=== PATIENT | female | born 2000 | race American Indian/Alaskan Native ===

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

== ENCOUNTER 2021-01-15 07:56 | Day surgery (SDC) | payer MEDICAID ==
--- NOTE | 2021-01-15 07:11 | History and Physical Report ---
History of Present Illness Date of examination: 01/14/21 History of present illness: Patient has been reassessed/reevaluated. H&P has been reviewed. No interval changes. This is a 20 years old female who presents missed Patient's work up has included serial transvaginal ultrasounds and Bhcg which revealed missed . Medical and surgical treatment options discussed Discussed risks and benefits of expectant management, treatments with medications and dilatation and curretage. Patient desires D&C Vital Signs: Patient Profile: 20 Years Old Female LMP: 10/26/2020 Height: 61 inches Weight: 216 pounds BMI: 40.81 Temp: 97.5 degrees F BP sittin / 78 (left arm) Menstrual History: LMP (date): 10/26/2020 Past History : 3 Term Births: 2 Premature Births: 0 Living Children: 2 Para: 2 Mult. Births: 0 Prev : 1 Aborta: 0 Elect. Ab: 0 Spont. Ab: 0 Ectopics: 0 # 1 Delivery date: 2014 Weeks Gestation: 38 labor: no Delivery type: Hours of labor: 14 Anesthesia type: epidural Delivery location: [facility] Sex: Female weight: 5-4 # 2 Delivery date: 2017 Weeks Gestation: 38 labor: no Delivery type: Hours of labor: 18 Anesthesia type: spinal Delivery location: [facility] Sex: Female weight: 6-0 Comments: arrest of dilation [employer] History Uterine Surgery (not C/S): negative Operations: C-sectionX 2018 Anesthesia Complications: negative Abnormal PAP: negative Uterine Anomaly: negative EDYTA Exposure: negative Infertility: negative Infection History HIV Risk Eval: no Personal hx. of genital herpes: no Partner hx. of genital herpes: no Hx of STD: none Current Allergies (reviewed today): No known allergies Past Medical History: Negative Past Medical History Past Surgical History: C-sectionX 1 2018 Family History Summary: General Comments - FH: DM: Aunt and Uncle HTN: Aunt and Uncle Stroke: Uncle Risk Factors: Smoked Tobacco Use: Never smoker Smokeless Tobacco Use: Never Passive smoke exposure: no Drug use: no HIV high-risk behavior: no Caffeine use: 0 drinks per day Alcohol use: no Exercise: yes Times per week: 2 Seatbelt use: 100 % Review of Systems General Denies fever, chills, sweats, anorexia, fatigue, weakness, malaise, weight loss and sleep disorder. Complains of abnormal vaginal bleeding. Denies vaginal discharge, incontinence, dysuria, hematuria, urinary frequency, amenorrhea, menorrhagia, pelvic pain, genital sores, decreased libido, painful periods, painful sex, urinary urgency, hot flashes, vaginal dryness, vaginal itching and vaginal odor. CV Denies chest pains, palpitations, syncope, dyspnea on exertion, orthopnea, PND and peripheral edema. Resp Denies cough, dyspnea at rest, excessive sputum, hemoptysis, wheezing and pleurisy. GI Denies nausea, vomiting, diarrhea, constipation, change in bowel habits, abdominal pain, melena, hematochezia, jaundice, gas/bloating, indigestion/heartburn, dysphagia and odynophagia. Breast Denies left breast lump, right breast lump, nipple discharge, bloody discharge from nipple, breast pain, abnormal mammogram and breast enlargement. Past History Past Medical History: other (SEE HPI FOR DETAILS) Past Surgical History: Other (SEE HPI FOR DETAILS) Social history: other (SEE HPI FOR DETAILS) Family history: other (SEE HPI FOR DETAILS) Medications and Allergies Allergies Allergy/AdvReac Type Severity Reaction Status Date / Time No Known Drug Allergies Allergy Unknown Verified 01/15/21 09:03 turkey Allergy Hives Verified 01/15/21 09:03 Home Medications Medication Instructions Recorded Confirmed Last Taken Type No Known Home Medications [No 01/15/21 01/15/21 Unknown History Reported Home Medications] Review of Systems Constitutional: other (SEE HPI FOR DETAILS) Exam - Physical Exam Narrative exam: HEENT: normocephalic, no lesions or deformities Skin no significant abnormal lesions or rashes Chest: respiratory effort normal, clear to auscultation CV: regular, normal S1-S2, no murmur, no rub, no gallop Abdomen: normal bowel sounds, soft, nontender, no HSM Neuro: no gross anomalities Extremities: no clubbing, cyanosis, or edema [employer] Exams Vulva/Vagina: No lesions, normal BUS, normal rugae Cervix: No lesions; no cervical motion tenderness Uterus: normal size and position, midline, mobile Adnexae: no masses or tenderness Rectovaginal: exam defered Results - Labs CBC & Chem 7: 01/15/21 07:25 Assessment and Plan - Patient Problems (1) Missed Current Visit: No Status: Acute Plan to address problem: Diagnosis explained to patient . Questions answered. Medical and surgical treatment options discussed Patient desires D&C. Discussed risk of surgery including infection, bleeding and risk of perforating her uterus. Questions answered. Patient understands and desires to proceed
[2021-01-15] MEDS ORDERED: LACTATED RINGERS 1,000 ML IV SCH (08:30)
[2021-01-15 08:34] LABS: Hematocrit 35.8 % (30.3-42.9); Hemoglobin 12.1 gm/dl (10.1-14.3)
[2021-01-15] MEDS ORDERED: HYDROmorphone 1 MG/1 ML INJ ONE (08:54)
[2021-01-15] MEDS ORDERED: propofoL 200 MG/20 ML VIAL IV ONE (08:55)
--- NOTE | 2021-01-15 09:12 | Anesthesia Consultation ---
Anesthesia Consult and Med Hx Date of service: 01/15/21 - Airway Anesthetic Teeth Evaluation: Good ROM Head & Neck: Adequate Mental/Hyoid Distance: Adequate - Pre-Operative Health Status ASA Pre-Surgery Classification: ASA3 Proposed Anesthetic Plan: General - Pulmonary Hx Asthma: No COPD: No Hx Pneumonia: No - Cardiovascular System Hx Hypertension: No Hx Coronary Artery Disease: No Hx Heart Attack/AMI: No Hx Angina: No - Central Nervous System Hx Neuromuscular Disorder: No Hx Seizures: No CVA: No Hx Psychiatric Problems: No - Endocrine Hx Renal Disease: No Hx End Stage Renal Disease: No Hx Cirrhosis: No Hx Liver Disease: No Hx Hypothyroidism: No Hx Hyperthyroidism: No - Hematic Hx Anemia: Yes Hx Sickle Cell Disease: No - Other Systems Hx Alcohol Use: No Hx Obesity: Yes (Morbid obesity BMI 44.4)
--- NOTE | 2021-01-15 09:12 | Anesthesia Day of Surgery ---
Anesthesia Day of Surgery - Day of Surgery Patient Examined: Yes Patient H&P Reviewed: Yes Patient is NPO: Yes
[2021-01-15] MEDS ORDERED: MIDAZOLAM 2 MG/2 ML INJ IV NR (10:00)
[2021-01-15] MEDS ORDERED: FAMOTIDINE 20 MG/2 ML INJ IV NR (10:00)
[2021-01-15] MEDS ORDERED: LIDOCAINE MPF (2%) 20 MG/1 ML VIAL 5 ML ONE (10:04)
[2021-01-15] MEDS ORDERED: dexAMETHasone 20 MG/5 ML VIAL ONE (10:04)
[2021-01-15] MEDS ORDERED: ONDANSETRON 4 MG/2 ML INJ ONE (10:04)
[2021-01-15] MEDS ORDERED: KETOROLAC 30 MG/1 ML INJ ONE (10:05)
[2021-01-15] MEDS ORDERED: METHYLERGONOVINE MALEATE 0.2 MG/ML VIAL IM ONE ×2 (10:06→10:33)
[2021-01-15] MEDS ORDERED: SODIUM CHLORIDE 0.9% IRR 1,500 ML BOTTLE IR ONE (10:33)
--- NOTE | 2021-01-15 10:40 | Operative Report ---
Operative Report Operative Report: Date of procedure: January 15, 2021 Pre-operative diagnosis: Missed Post-operative diagnosis: Same Procedure name(s): Suction dilatation and curettage Surgeon: Rigoberto Falcon MD [employer] Forming Machine Tender: [] Anesthesia: General EBL: 50 mL Complications: None Findings: A moderate amount of tissue consistent with products of conception Specimen(s): Uterine contents Procedure: The patient was brought operating room where general anesthesia was induced without difficulty. Patient was placed in dorsal lithotomy position prepped and draped in the usual sterile manner. Rubber catheter was used to empty her bladder. Speculum placed in the vagina. Tenaculum was placed at 12:00. The cervix was dilated progressively with Hegar dilators. A 10 mm suction catheter was placed through the cervical os. Several passes of the suction catheter removed the uterine contents. General curettage was done with a banjo curettte. On until a gritty sensation was felt throughout the uterine cavity. Further suction with the suction curettage revealed no further products. All instruments were removed patient was hemostatic. She was awakened in the operating room and accompanied to recovery room in good condition.
--- NOTE | 2021-01-15 10:42 | Short Stay Summary ---
Short Stay Documentation Date of service: 01/15/21 - History Past Medical History: other (SEE HPI FOR DETAILS) Past Surgical History: Other (SEE HPI FOR DETAILS) Social history: other (SEE HPI FOR DETAILS) - Allergies and Medications Current Medications: Allergies No Known Drug Allergies Allergy (Verified 01/15/21 09:03) Unknown turkey Allergy (Verified 01/15/21 09:03) Hives Home Medications Medication Instructions Recorded Confirmed Last Taken Type RX: No Known Home Medications [No 01/15/21 01/15/21 Unknown History Reported Home Medications] Active Medications Famotidine (Famotidine 20 Mg/2 Ml Inj) 20 mg IV PREOP NR Stop: 01/15/21 21:00 Last Admin: 01/15/21 09:33 Dose: 20 mg Documented by: Lactated Ringer's (Lactated Ringers) 1,000 mls @ 125 mls/hr IV DIRECT CINTHIA Last Admin: 01/15/21 07:25 Dose: 125 mls/hr Documented by: Midazolam HCl (Midazolam 2 Mg/2 Ml Inj) 2 mg IV PREOP NR Stop: 01/15/21 23:59 Last Admin: 01/15/21 09:35 Dose: 2 mg Documented by: - Physical exam General appearance: no acute distress Integumentary: no rash HEENT: Atraumatic Lungs: Normal air movement Heart: Regular rate Gastrointestinal: normal Female Genitourinary: normal Rectal Exam: deferred Extremities: no ischemia, pulses intact, No edema - Brief post op/procedure progress note Date of procedure: 01/15/21 (See dictated operative note for details) - Hospital course Hospital course: Patient was admitted underwent the above him procedure without any complications. Patient will be discharged with follow-up in office in 1-2 weeks for postop check. - Disposition Condition at discharge: Good Disposition: DC-01 TO HOME OR SELFCARE - Discharge Diagnoses (1) Missed Status: Acute Short Stay Discharge Plan Activity: no restrictions Diet: regular Additional Instructions: Patient to call office for fever chills nausea, vomiting.heavy vaginal bleeding or pain uncontrolled by pain medication Follow up with: CANDACE MCKENNA [Other] - 7 Days Forms: Outpatient Surgery DC Inst.
[2021-01-15] MEDS ORDERED: HYDROcodone/ACETAMINOPHEN 5-325 MG TAB PO PRN (11:00)
[2021-01-15 11:30] VITALS: BP 120/58
--- NOTE | 2021-01-15 11:56 | Post Anesthesia Evaluation ---
- Post Anesthesia Evaluation Patient Participated: Yes Airway Patent: Yes Stable Respiratory Function: Yes Nausea/Vomiting: No Temp > 96.8F: Yes Pain Manageable: Yes Adequeate Hydration: Yes Anesthesia Complications: No Block Receding Appropriately: Not Applicable Patient on Ventilator: No
== END 2021-01-15 11:40 | disposition home or self-care (01) ==
LOC: OR 07:56
PROVIDERS: ATTEND Obstetrics & Gynecology
DX: O02.1 Missed abortion (principal); E66.9 Obesity, unspecified; Z87.42 Personal history of other diseases of the female genital tract; Z79.899 Other long term (current) drug therapy; Z98.890 Other specified postprocedural states
CPT/HCPCS: 36415; 59820; 85014; 85018; 88305; J1100; J1170; J1885; J2210; J2250; J2405; J2704; J7120

== ENCOUNTER 2021-04-21 13:02 | Emergency (ER) | payer MEDICAID ==
[2021-04-21 14:08] VITALS: BP 138/75
[2021-04-21 16:07] LABS: Mean Corpuscular HGB Conc 33 % (30-34); Mean Corpuscular Volume 83 fl (79-97); Platelet Count 266 K/mm3 (140-440); Red Blood Count 4.34 M/mm3 (3.65-5.03); Red Cell Distribution Width 14.4 % (13.2-15.2)
[2021-04-21 16:11] LABS: Bilirubin,Urine NEG (Negative); Blood,Urine NEG (Negative); Color,Urine Yellow (Yellow); Mucus,Urine 2+ /HPF
[2021-04-21 16:15] LABS: Alanine Aminotransferase 33 units/L (7-56); Albumin 4.4 g/dL (3.9-5); Blood Urea Nitrogen 8 mg/dL (7-17); Calcium 9.6 mg/dL (8.4-10.2); Hemolysis Index 21
[2021-04-21 16:16] LABS: BUN/Creatinine Ratio 20
[2021-04-21] MEDS ORDERED: ONDANSETRON 4 MG ODT TAB PO ONE (16:54)
--- NOTE | 2021-04-21 16:59 | Emergency Department Report ---
<JETT JOHNSON - Last Filed: 04/21/21 16:55> ED N/V/D HPI - General Chief complaint: Nausea/Vomiting/Diarrhea Stated complaint: VOMITING Time Seen by Provider: 04/21/21 14:51 Source: patient Mode of arrival: Ambulatory Limitations: No Limitations - History of Present Illness Initial comments: 20-year-old -[place] female who is 5 para to 3 with 1 miscarriage presents to the emergency room complaining of vomiting and nausea for few weeks. Patient states that she took a home test and it was positive. Patient reports her last menstrual period was 01/15/2021. Patient reports she is not able to hold down any foods or fluids. Patient reports that she has an appointment with her AUTOMOBILE ACCESSORIES INSTALLER for the first time on May 01, 2021 at [facility] in [place]. Patient reports that she was having lower abdominal pain. Denies any discharge or bleeding. MD complaint: nausea, vomiting, abdominal pain Onset/Timin -: week(s) Description of Vomiting: food contents Associated Abdominal Pain: Yes Severity: mild Quality: cramping Consistency: intermittent Improves with: none Worsens with: none Associated Symptoms: nausea/vomiting. denies: chest pain, diaphoresis, fever/chills, headaches - Related Data Previous Rx's Medication Instructions Recorded Last Taken Type Ondansetron [Zofran Odt] 4 mg PO Q8HR #12 tab.rapdis 04/21/21 Unknown Rx Vit-Fe Fumar-FA [ 1 tab PO QDAY #90 tablet 04/21/21 Unknown Rx Vitamin] Allergies Allergy/AdvReac Type Severity Reaction Status Date / Time No Known Drug Allergies Allergy Unknown Verified 01/15/21 09:03 turkey Allergy Hives Verified 01/15/21 09:03 ED Review of Systems Comment: All other systems reviewed and negative ED Past Medical Hx - Past Medical History Previous Medical History?: No Hx Hypertension: No Hx Heart Attack/AMI: No Hx Congestive Heart Failure: No Hx Diabetes: No Hx Deep Vein Thrombosis: No Hx Liver Disease: No Hx Renal Disease: No Hx Sickle Cell Disease: No Hx Seizures: No Hx Asthma: No Hx COPD: No Hx HIV: No - Surgical History Past Surgical History?: Yes Additional Surgical History: - Social History Smoking Status: Never Smoker - Medications Home Medications: Home Medications Medication Instructions Recorded Confirmed Last Taken Type Ondansetron [Zofran Odt] 4 mg PO Q8HR #12 tab.rapdis 04/21/21 Unknown Rx Vit-Fe Fumar-FA [ 1 tab PO QDAY #90 tablet 04/21/21 Unknown Rx Vitamin] ED Physical Exam - General Limitations: No Limitations ED Medical Decision Making - Lab Data Result diagrams: 04/21/21 15:22 04/21/21 15:22 - Medical Decision Making 20-year-old -[place] female who is 5 para to 3 with 1 miscarriage presents to the emergency room complaining of vomiting and nausea for few weeks. Patient states that she took a home test and it was positive. Patient reports her last menstrual period was 01/15/2021. Patient reports she is not able to hold down any foods or fluids. Patient reports that she has an appointment with her AUTOMOBILE ACCESS[employer]IES INSTALLER for the first time on May 01, 2021 at [facility] in [place]. Patient reports that she was having lower abdominal pain. Denies any discharge or bleeding. ED Disposition Clinical Impression: Nausea/vomiting in , First trimester Disposition: DC-01 TO HOME OR SELFCARE Is pt being admited?: No Does the pt Need Aspirin: No Condition: Stable Instructions: Morning Sickness, [id number] Additional Instructions: Urinalysis is negative for any concerns for infection. Blood work looks good no signs of anemia. Your hCG quant level was 5. Your ultrasound corresponds to gestational age of 5 weeks, 2 days. Take vitamins as directed. Please avoid smoking, drugs, caffeine, and alcohol. Eat a well-balanced diet. Do not eat shellfish. Drink plenty of fluids. Follow up with RAILWAY TRACK WORKER next week as scheduled. Do not take anything except Tylenol for pain without consulting your RAILWAY TRACK WORKER. Return to the Emergency Department for severe abdominal pain, loss of fluid, vaginal bleeding or any other concerns. Prescriptions: Vit-Fe Fumar-FA [ Vitamin] 1 tab PO QDAY #90 tablet Ondansetron [Zofran Odt] 4 mg PO Q8HR #12 tab.rapdis Referrals: [facility] [Provider Group] - 3-5 Days <FESTUS GRIGSBY - Last Filed: 04/21/21 19:07> ED Review of Systems ROS: Stated complaint: VOMITING Other details as noted in HPI ED Course Vital Signs 04/21/21 14:08 Temperature 98.9 F Pulse Rate 86 Respiratory 18 Rate Blood Pressure 138/75 [Right] O2 Sat by Pulse 97 Oximetry ED Medical Decision Making - Lab Data Result diagrams: 04/21/21 15:22 04/21/21 15:22 - Medical Decision Making Care of patient transferred by Magy Johnson PA-C at shift change pending ultrasound results. On reevaluation, patient remains stable. No vomiting in the emergency department. Ultrasound shows intrauterine gestational sac corresponding to 5 weeks, 2 days gestational age. No clinical indication for further diagnostic work-up on an emergent basis at this time. Patient will be discharged home with prescriptions as previously arranged by initial ED provider and instructed to follow-up with her reconnaissance man as scheduled next week. Patient expressed understanding and is agreeable to plan of care. Lifestyle modifications discussed. Strict return precautions provided. ULTRASOUND OBSTETRIC INDICATION / CLINICAL INFORMATION: abd pain. Hyperemesis. Early . Clinical Gestational Age (GA) in weeks, days: 5, 0 TECHNIQUE: Transabdominal and Transvaginal. COMPARISON: None available. FINDINGS: GESTATIONAL SAC: Well-defined oval shape and intrauterine in location. Mean gestational sac diameter is 0.53 cm corresponding to 5, 2 weeks, days. YOLK SAC: Not visualized. EMBRYO/FETUS: Not visualized. ADNEXA: Physiologic right ovarian cyst. Left ovary appears normal. No adnexal mass. FREE FLUID: None. ADDITIONAL FINDINGS: None. IMPRESSION: 1. Intrauterine gestational sac corresponding to 5 weeks, 2 days gestational age. No definite yolk sac or embryonic pole. Clinical and sonographic follow-up is recommended. Signer Name: Sally Floyd MD Signed: 04/21/2021 5:39 PM Workstation Name: [id number] Transcribed By: DT Dictated By: Clem Floyd MD Electronically Authenticated By: Clem Floyd MD Signed Date/Time: 04/21/211738 DD/ 35 TD/TT: Critical care attestation.: If time is entered above; I have spent that time in minutes in the direct care of this critically ill patient, excluding procedure time. ED Disposition Is pt being admited?: No Does the pt Need Aspirin: No Time of Disposition: 18:18
--- NOTE | 2021-04-21 17:43 | Ultrasound Report ---
ULTRASOUND OBSTETRIC INDICATION / CLINICAL INFORMATION: abd pain. Hyperemesis. Early . Clinical Gestational Age (GA) in weeks, days: 5, 0 TECHNIQUE: Transabdominal and Transvaginal. COMPARISON: None available. FINDINGS: GESTATIONAL SAC: Well-defined oval shape and intrauterine in location. Mean gestational sac diameter is 0.53 cm corresponding to 5, 2 weeks, days. YOLK SAC: Not visualized. EMBRYO/FETUS: Not visualized. ADNEXA: Physiologic right ovarian cyst. Left ovary appears normal. No adnexal mass. FREE FLUID: None. ADDITIONAL FINDINGS: None. IMPRESSION: 1. Intrauterine gestational sac corresponding to 5 weeks, 2 days gestational age. No definite yolk sa c or embryonic pole. Clinical and sonographic follow-up is recommended. Signer Name: Sally Floyd MD Signed: 04/21/2021 5:39 PM Workstation Name: [id number]
== END 2021-04-21 18:43 | disposition home or self-care (01) ==
LOC: ED 13:02
DX: O21.8 Other vomiting complicating pregnancy (principal); Z3A.01 Less than 8 weeks gestation of pregnancy; Z88.8 Allergy status to other drugs, medicaments and biological substances; Z98.890 Other specified postprocedural states; Z79.899 Other long term (current) drug therapy
CPT/HCPCS: 36415; 76801; 76805; 76817; 80053; 81001; 84702; 85027; Q0162

== ENCOUNTER 2021-09-15 16:46 | Outpatient (CLI) | payer MEDICAID ==
--- NOTE | 2021-09-15 18:27 | Emergency Department Report ---
<FRANCK KATHLEEN S - Last Filed: 09/16/21 09:13> ED Shortness of Breath HPI - General Chief Complaint: OB/Uterine Contractions Time Seen by Provider: 09/15/21 18:21 - Related Data Previous Rx's Medication Instructions Recorded Last Taken Type Ondansetron [Zofran Odt] 4 mg PO Q8HR #12 tab.rapdis 04/21/21 Unknown Rx Vit-Fe Fumar-FA [ 1 tab PO QDAY #90 tablet 04/21/21 Unknown Rx Vitamin] Allergies Allergy/AdvReac Type Severity Reaction Status Date / Time No Known Drug Allergies Allergy Unknown Verified 01/15/21 09:03 turkey Allergy Hives Verified 01/15/21 09:03 ED Past Medical Hx - Medications Home Medications: Home Medications Medication Instructions Recorded Confirmed Last Taken Type Ondansetron [Zofran Odt] 4 mg PO Q8HR #12 tab.rapdis 04/21/21 Unknown Rx Vit-Fe Fumar-FA [ 1 tab PO QDAY #90 tablet 04/21/21 Unknown Rx Vitamin] ED Medical Decision Making - Lab Data Result diagrams: 09/15/21 21:43 09/15/21 21:43 Lab Results 09/15/21 09/15/21 Range/Units 21:43 21:43 WBC 12.9 H (4.5-11.0) K/mm3 RBC 4.02 (3.65-5.03) M/mm3 Hgb 10.8 (10.1-14.3) gm/dl Hct 34.1 (30.3-42.9) % MCV 85 (79-97) fl MCH 27 L (28-32) pg MCHC 32 (30-34) % RDW 14.5 (13.2-15.2) % Plt Count 241 (140-440) K/mm3 Lymph % (Auto) 20.4 (13.4-35.0) % [place] % (Auto) 5.1 (0.0-7.3) % Eos % (Auto) 0.5 (0.0-4.3) % Baso % (Auto) 0.2 (0.0-1.8) % Lymph # (Auto) 2.6 (1.2-5.4) K/mm3 [place] # (Auto) 0.7 (0.0-0.8) K/mm3 Eos # (Auto) 0.1 (0.0-0.4) K/mm3 Baso # (Auto) 0.0 (0.0-0.1) K/mm3 Seg Neutrophils % 73.8 H (40.0-70.0) % Seg Neutrophils # 9.6 H (1.8-7.7) K/mm3 Sodium 138 (137-145) mmol/L Potassium 3.5 L (3.6-5.0) mmol/L Chloride 105.0 (98-107) mmol/L Carbon Dioxide 18 L (22-30) mmol/L Anion Gap 19 mmol/L BUN 7 (7-17) mg/dL Creatinine 0.3 L (0.6-1.2) mg/dL Estimated GFR > 60 ml/min BUN/Creatinine Ratio 23 % Glucose 72 (65-100) mg/dL Calcium 9.0 (8.4-10.2) mg/dL Troponin T < 0.010 (0.00-0.029) ng/mL NT-Pro-B Natriuret Pep 8.11 (0-450) pg/mL - Radiology Data NUCLEAR MEDICINE PERFUSION LUNG SCAN INDICATION / CLINICAL INFORMATION: SOB. TECHNIQUE: 2.8 mCi of Tc-99m MAA were given by IV. COMPARISON: Chest radiograph dated yesterday 09/15/2021. FINDINGS: PERFUSION: No segmental perfusion defects. ADDITIONAL FINDINGS: None. IMPRESSION: 1. Low probability for pulmonary embolism. ED Disposition Clinical Impression: Shortness of breath, Second trimester Disposition: 01 HOME / SELF CARE / HOMELESS Is pt being admited?: No Condition: Stable <ANAI SALAZAR - Last Filed: 09/21/21 21:20> ED Shortness of Breath HPI - General Source: patient Mode of arrival: Ambulatory Limitations: No Limitations - History of Present Illness Initial Comments: Chief complaint shortness of breath HPI: This is a 21-year-old female who is currently 26 weeks 1 day estimated due date December 21, 2021 who presents with shortness of breath. Patient's had shortness of breath for 1 month. She was sent by her trench pipe layer helper at my [employer] for evaluation. She denies fever, cough, body aches. She denies loss of taste smell. She did not receive COVID-19 vaccine. This is her fifth . She has had 1 miscarriage, 3 vaginal deliveries. -0-1-3 Patient also has had decreased movement and pelvic pain. She was evaluate d at labor and delivery prior to coming to the emergency department. MD Complaint: shortness of breath -: Gradual, month(s) (1 month) Severity: moderate Consistency: constant Improves With: nothing Worsens With: nothing Associated Symptoms: denies other symptoms ED Review of Systems ROS: Stated complaint: Other details as noted in HPI Comment: All other systems reviewed and negative Constitutional: denies: chills, fever, malaise Respiratory: shortness of breath. denies: cough, wheezing Cardiovascular: denies: chest pain Gastrointestinal: denies: abdominal pain, nausea, vomiting Skin: denies: rash, lesions Neurological: denies: headache, weakness ED Past Medical Hx - Past Medical History Previous Medical History?: No Hx Hypertension: No Hx Heart Attack/AMI: No Hx Congestive Heart Failure: No Hx Diabetes: No Hx Deep Vein Thrombosis: No Hx Liver Disease: No Hx Renal Disease: No Hx Sickle Cell Disease: No Hx Seizures: No Hx Asthma: No Hx COPD: No Hx HIV: No - Surgical History Past Surgical History?: Yes Additional Surgical History: - Social History Smoking Status: Never Smoker Substance Use Type: None ED Physical Exam - General Limitations: No Limitations General appearance: alert, in no apparent distress - Head Head exam: Present: atraumatic, normocephalic - Eye Eye exam: Present: normal appearance - ENT ENT exam: Present: mucous membranes moist - Neck Neck exam: Present: normal inspection, full ROM - Respiratory Respiratory exam: Present: normal lung sounds bilaterally. Absent: respiratory distress, wheezes, rales, rhonchi - Cardiovascular Cardiovascular Exam: Present: regular rate, normal rhythm, normal heart sounds. Absent: systolic murmur, diastolic murmur, rubs, gallop - GI/Abdominal GI/Abdominal exam: Present: soft, normal bowel sounds. Absent: distended, tenderness, guarding, rebound - Extremities Exam Extremities exam: Present: normal inspection - Neurological Exam Neurological exam: Present: alert, oriented X3 - Psychiatric Psychiatric exam: Present: normal affect, normal mood - Skin Skin exam: Present: warm, dry, intact, normal color. Absent: rash ED Course Vital Signs 09/15/21 17:55 Temperature 98.4 F Pulse Rate 87 Respiratory 20 Rate Blood Pressure 109/70 [Left] O2 Sat by Pulse 100 Oximetry - Reevaluation(s) Reevaluation #1: 09/15/21 18:52 [employer] call nuclear medicine pet ct technologist. Perfusion scan will be performed at 6 AM. The scan is delayed due to medication shortage. Patient is aware. ED Medical Decision Making - Lab Data Result diagrams: 09/15/21 21:43 09/15/21 21:43 - Radiology Data Radiology results: report reviewed Patient Name: DANNA RIVAS Gender: Female Date of : 2000 Referring Provider: ANAI SALAZAR Organization: [facility] Accession Number: [id number] Requested Date: September 15, 2021 18:52 Report Status: Final Requested Procedure: 1 Procedure Description: US OB follow up Modality: US Findings Reporting MD: Charles Mendez Dictation Time: September 15, 2021 19:42 Assistant Service Manager: Not available Dye Weigher Date: Limited OB Ultrasound HISTORY: decreased movement. TECHNIQUE: Grayscale and color imaging performed. COMPARISON: 04/21/2021 FINDINGS: Single viable intrauterine gestation with cephalic presentation. Anterior placenta. GIANA is 13 cm. Heart rate is 143 bpm. Cervical length is 5 cm. Overall EGA by ultrasound is 26 weeks and 4 days with estimated delivery date of 12/18/2021. These findings are compared to a clinical gestational age of 26 weeks and 1 day. Estimated weight is 891 g. movement was observed by the c d area supervisor during the exam. IMPRESSION: Single viable intrauterine gestation as above. Signer Name: Charles Mendez MD Signed: 09/15/2021 7:42 PM Workstation Name: [id number] Patient Name: DANNA RIVAS Gender: Female Date of : 2000 Referring Provider: ANAI SALAZAR Organization: [facility] Accession Number: [id number] Requested Date: September 15, 2021 18:21 Report Status: Final Requested Procedure: 1 Procedure Description: XR chest 1V ap Modality: XR Findings Reporting MD: Charles Mendez Dictation Time: September 15, 2021 18:22 Assistant Service Manager: Not available Dye Weigher Date: CHEST 1 VIEW INDICATION: Second trimester shortness of breath. COMPARISON: None FINDINGS: SUPPORT DEVICES: None. HEART: Within normal limits. LUNGS/PLEURA: Minimal interstitial edema with no consolidation or effusion. ADDITIONAL FINDINGS: None. IMPRESSION: 1. Lung findings as above. Signer Name: Charles Mendez MD Signed: 09/15/2021 6:22 PM Workstation Name: [id number] - Medical Decision Making . Shortness of breath: Must rule out pulmonary embolism. Awaiting perfusion scan which will be performed approximately 6 AM. Delay due to medication shortage. Chemistry within normal limits, BMP within normal and her troponin within normal limits. Nonspecific leukocytosis. No evidence of infection. 2. Decreased movement pelvic pain: I discussed case with Dr. Falcon. Patient is appropriate for discharge once dyspnea work-up is complete. Ultrasound obtained revealed movement viable IUP with cardiac activity I have reviewed perfusion scan read. Patient had appropriate disposition by my colleague. Critical care attestation.: If time is entered above; I have spent that time in minutes in the direct care of this critically ill patient, excluding procedure time. ED Disposition Is pt being admited?: No Does the pt Need Aspirin: No
--- NOTE | 2021-09-15 19:26 | XRay Report ---
CHEST 1 VIEW INDICATION: Second trimester shortness of breath. COMPARISON: None FINDINGS: SUPPORT DEVICES: None. HEART: Within normal limits. LUNGS/PLEURA: Minimal interstitial edema with no consolidation or effusion. ADDITIONAL FINDINGS: None. IMPRESSION: 1. Lung findings as above. Signer Name: Charles Mendez MD Signed: 09/15/2021 7:22 PM Workstation Name: [id number]
--- NOTE | 2021-09-15 20:46 | Ultrasound Report ---
Limited OB Ultrasound HISTORY: decreased movement. TECHNIQUE: Grayscale and color imaging performed. COMPARISON: 04/21/2021 FINDINGS: Single viable intrauterine gestation with cephalic presentation. Anterior placenta. GIANA is 13 cm. Heart rate is 143 bpm. Cervical length is 5 cm. Overall EGA by ultrasound is 26 weeks and 4 da ys with estimated delivery date of 12/18/2021. These findings are compared to a clinical gestational ag e of 26 weeks and 1 day. Estimated weight is 891 g. movement was observed by the sonograp her during the exam. IMPRESSION: Single viable intrauterine gestation as above. Signer Name: Charles Mendez MD Signed: 09/15/2021 8:42 PM Workstation Name: [id number]
[2021-09-15 21:57] LABS: Basophils % (Auto) 0.2 % (0.0-1.8); Eosinophils # (Auto) 0.1 K/mm3 (0.0-0.4); Eosinophils % (Auto) 0.5 % (0.0-4.3); Hematocrit 34.1 % (30.3-42.9); Hemoglobin 10.8 gm/dl (10.1-14.3); Lymphocytes # (Auto) 2.6 K/mm3 (1.2-5.4); Lymphocytes % (Auto) 20.4 % (13.4-35.0); Mean Corpuscular HGB Conc 32 % (30-34); Mean Corpuscular Volume 85 fl (79-97); Monocytes # (Auto) 0.7 K/mm3 (0.0-0.8); Monocytes % (Auto) 5.1 % (0.0-7.3); Platelet Count 241 K/mm3 (140-440); Red Blood Count 4.02 M/mm3 (3.65-5.03); Red Cell Distribution Width 14.5 % (13.2-15.2)
[2021-09-15 22:16] LABS: Blood Urea Nitrogen 7 mg/dL (7-17); Hemolysis Index 6
[2021-09-15 22:17] LABS: BUN/Creatinine Ratio 23
--- NOTE | 2021-09-16 08:44 | Nuclear Medicine Report ---
NUCLEAR MEDICINE PERFUSION LUNG SCAN INDICATION / CLINICAL INFORMATION: SOB. TECHNIQUE: 2.8 mCi of Tc-99m MAA were given by IV. COMPARISON: Chest radiograph dated yesterday 09/15/2021. FINDINGS: PERFUSION: No segmental perfusion defects. ADDITIONAL FINDINGS: None. IMPRESSION: 1. Low probability for pulmonary embolism. Signer Name: Parker Donis MD Signed: 09/16/2021 8:40 AM Workstation Name: [id number]
[2021-09-16 10:25] VITALS: BP 129/86
[2021-09-16] MEDS ORDERED: LACTATED RINGERS 500 ML IV ONE (11:33)
[2021-09-21] MEDS ORDERED: OXYTOCIN DRIP 30,000 MILLIUNITS/500 ML BAG IV ONE (09:49)
== END 2021-09-16 23:59 | disposition home or self-care (01) ==
LOC: LDOR 16:46 → APU 16:46 → ED 16:46 → TRG 16:46 → LDOR 16:58 → APU 16:58 → ED 16:58 → TRG 16:58 → APU 16:58 → EDSTATUS 17:32 → ED 09-16 10:23 → APU 09-16 10:23 → EDCLIBED 09-16 10:56 → UNDOFXERSVC 09-16 10:56 → UNDOFXCLIACCOM 09-16 10:56 → UNDOFXCLISVC 09-16 10:56 → TRG 09-16 23:59
PROVIDERS: ATTEND Obstetrics & Gynecology
DX: Z34.92 Encounter for supervision of normal pregnancy, unspecified, second trimester (principal); R06.02 Shortness of breath; Z3A.17 17 weeks gestation of pregnancy
CPT/HCPCS: 36415; 71045; 76816; 78580; 80048; 83880; 84484; 85025; A9540

== ENCOUNTER 2021-09-16 14:11 | Outpatient (CLI) | payer MEDICAID ==
[2021-09-16] MEDS ORDERED: LACTATED RINGERS 500 ML IV ONE (14:45)
[2021-09-16 15:43] VITALS: BP 113/58
== END 2021-09-16 15:32 | disposition home or self-care (01) ==
LOC: TRG 14:11
PROVIDERS: ATTEND Obstetrics & Gynecology
DX: Z34.92 Encounter for supervision of normal pregnancy, unspecified, second trimester (principal); Z3A.26 26 weeks gestation of pregnancy
CPT/HCPCS: 59025; Q0177

== ENCOUNTER 2021-10-28 20:21 | Outpatient (CLI) | payer MEDICAID ==
[2021-10-28] MEDS ORDERED: LACTATED RINGERS 500 ML IV ONE (20:46)
[2021-10-28 20:57] VITALS: BP 110/59
[2021-10-28 21:18] LABS: Bilirubin,Urine NEG (Negative); Blood,Urine NEG (Negative); Color,Urine Amber (Yellow); Mucus,Urine 3+ /HPF
== END 2021-10-28 21:53 | disposition home or self-care (01) ==
LOC: TRG 20:21 → APU 20:22 → TRG 21:53
PROVIDERS: ATTEND Obstetrics & Gynecology
DX: O62.9 Abnormality of forces of labor, unspecified (principal); O36.8130 Decreased fetal movements, third trimester, not applicable or unspecified; Z3A.32 32 weeks gestation of pregnancy
CPT/HCPCS: 59025; 81001; 87086

== ENCOUNTER 2021-11-25 12:46 | Outpatient (CLI) | payer MEDICAID ==
[2021-11-25] MEDS ORDERED: LACTATED RINGERS 500 ML IV ONE (12:53)
[2021-11-25 13:46] LABS: Hematocrit 33.9 % (30.3-42.9); Hemoglobin 10.6 gm/dl (10.1-14.3); Mean Corpuscular HGB Conc 31 % (30-34); Mean Corpuscular Volume 78 fl (79-97); Platelet Count 243 K/mm3 (140-440); Red Blood Count 4.34 M/mm3 (3.65-5.03); Red Cell Distribution Width 15.5 % (13.2-15.2)
[2021-11-25 14:02] LABS: Alanine Aminotransferase 11 units/L (7-56); Uric Acid 4.1 mg/dL (3.5-7.6)
[2021-11-25 14:54] VITALS: BP 105/62
--- NOTE | 2021-11-25 15:22 | Ultrasound Report ---
ULTRASOUND OBSTETRIC LIMITED INDICATION / CLINICAL INFORMATION: GIANA. Clinical Gestational Age (GA) in weeks, days: 36 weeks 2 days TECHNIQUE: Transabdominal. COMPARISON: Prior OB ultrasound 11/09/2021 FINDINGS: HEART RATE (beats per minute): 140 bpm AMNIOTIC FLUID INDEX (cm) = 15.7 (normal = 7-24 cm) PRESENTATION: Cephalic. ADDITIONAL FINDINGS: None. IMPRESSION: 1. Normal amniotic fluid index level. Signer Name: Perla Wild MD Signed: 11/25/2021 3:17 PM Workstation Name: [email or web address]
== END 2021-11-25 15:04 | disposition home or self-care (01) ==
LOC: TRG 12:46 → APU 12:47 → TRG 15:04
PROVIDERS: ATTEND Obstetrics & Gynecology
DX: Z34.93 Encounter for supervision of normal pregnancy, unspecified, third trimester (principal); Z3A.36 36 weeks gestation of pregnancy
CPT/HCPCS: 36415; 59025; 76815; 82565; 83615; 84450; 84460; 84550; 85027

== ENCOUNTER 2021-12-18 08:59 | Inpatient (IN) | payer MEDICAID ==
[2021-12-17 11:59] LABS: Hematocrit 28.8 % (30.3-42.9); Hemoglobin 10.1 gm/dl (10.1-14.3); Mean Corpuscular HGB Conc 35 % (30-34); Mean Corpuscular Volume 77 fl (79-97); Platelet Count 218 K/mm3 (140-440); Red Blood Count 3.73 M/mm3 (3.65-5.03); Red Cell Distribution Width 16.4 % (13.2-15.2)
[2021-12-18] MEDS ORDERED: BICITRA ORAL LIQD 30ML PO NR (09:15)
[2021-12-18] MEDS ORDERED: FAMOTIDINE 20 MG/2 ML INJ IV NR (09:15)
[2021-12-18] MEDS ORDERED: NalbUPHINE 10 MG/1 ML INJ IV PRN (09:30)
[2021-12-18] MEDS ORDERED: ONDANSETRON 4 MG/2 ML INJ IV PRN ×2 (09:30→16:54)
[2021-12-18] MEDS ORDERED: PROMETHAZINE 25 MG TAB PO PRN (09:30)
[2021-12-18] MEDS ORDERED: PROMETHAZINE 25 MG RECT SUPP PR PRN (09:30)
[2021-12-18] MEDS ORDERED: NALOXONE 0.4 MG/1 ML INJ IV PRN ×2 (09:30→16:54)
[2021-12-18] MEDS ORDERED: METOCLOPRAMIDE 10 MG/2 ML INJ IV NR (09:30)
[2021-12-18] MEDS ORDERED: diphenhydrAMINE 50 MG/ML VIAL IV PRN (09:30)
[2021-12-18] MEDS ORDERED: HYDROmorphone 1 MG/1 ML INJ IV PRN (09:30)
[2021-12-18] MEDS ORDERED: BUPIVACAINE/PF (0.5%) 5 MG/1 ML 30 ML VIAL INFILTRATI ONE (09:49)
[2021-12-18] MEDS ORDERED: KETOROLAC 30 MG/1 ML INJ ONE (09:49)
[2021-12-18] MEDS ORDERED: dexAMETHasone 20 MG/5 ML VIAL ONE (09:49)
[2021-12-18] MEDS ORDERED: ONDANSETRON 4 MG/2 ML INJ ONE (09:49)
[2021-12-18] MEDS ORDERED: LIDOCAINE MPF (2%) 20 MG/1 ML VIAL 5 ML ONE (09:50)
[2021-12-18] MEDS ORDERED: OXYTOCIN DRIP 30 UNITS/500 ML BAG IV SCH ×2 (10:00→16:54)
[2021-12-18] MEDS ORDERED: LACTATED RINGERS 1,000 ML IV SCH (10:00)
[2021-12-18] MEDS ORDERED: ceFAZolin/Water 2 GM/20 ML 2 GM/20 ML SYRINGE IV NR (10:00)
--- NOTE | 2021-12-18 11:12 | History and Physical Report ---
History of Present Illness Date of examination: 12/18/21 Date of admission: 12/18/21 08:59 Chief complaint: Presenting for C/S History of present illness: Patient is a at 39w4d with h/o C/S x1 presenting for repeat section. Voices no complaints. +FM. Denies contractions, vaginal bleeding, and leakage of fluid Past History Past Surgical History: section Family/Genetic History: none Social history: no significant social history - Obstetrical History : 5 Medications and Allergies Allergies Allergy/AdvReac Type Severity Reaction Status Date / Time turkey Allergy Hives Verified 12/11/21 17:58 Home Medications Medication Instructions Recorded Confirmed Last Taken Type Aspirin [Adult Aspirin] 81 mg PO DAILY 12/11/21 12/11/21 Unknown History Vit-Fe Fumar-FA [ 1 tab PO QDAY 12/11/21 12/11/21 Unknown History Vitamin] Active Meds: Active Medications Citric Acid/Sodium Citrate (Bicitra Oral Liqd 30ml) 30 ml PO ONCE NR Stop: 12/18/21 13:00 Last Admin: 12/18/21 09:50 Dose: 30 ml Diphenhydramine HCl (Diphenhydramine 50 Mg/Ml Vial) 12.5 mg IV Q2H PRN PRN Reason: Itching Famotidine (Famotidine 20 Mg/2 Ml Inj) 20 mg IV ONCE NR Stop: 12/18/21 13:00 Last Admin: 12/18/21 09:50 Dose: 20 mg Hydromorphone HCl (Hydromorphone 1 Mg/1 Ml Inj) 0.5 mg IV Q4H PRN PRN Reason: breakthrough pain > 7/10 Lactated Ringer's (Lactated Ringers) 1,000 mls @ 2,250 mls/hr IV PREOP CINTHIA Stop: 12/19/21 10:27 Last Admin: 12/18/21 09:41 Dose: 2,250 mls/hr Oxytocin/Sodium Chloride (Pitocin/Ns 30 Unit/500ml) 30 units in 500 mls @ 0 mls/hr IV TITR CINTHIA; Protocol Cefazolin Sodium (Ancef/Sterile Water 2 Gm/20 Ml) 2 gm in 20 mls @ 80 mls/hr IV PREOP NR; Protocol Stop: 12/18/21 13:00 Metoclopramide HCl (Metoclopramide 10 Mg/2 Ml Inj) 10 mg IV ONCE NR Stop: 12/18/21 13:00 Last Admin: 12/18/21 09:50 Dose: 10 mg Nalbuphine HCl (Nalbuphine 10 Mg/1 Ml Inj) 2.5 mg IV Q2H PRN PRN Reason: Itching Naloxone HCl (Naloxone 0.4 Mg/1 Ml Inj) 0.2 mg IV Q2MIN PRN PRN Reason: Res Rate </= 8 or 02 SAT < 92% Ondansetron HCl (Ondansetron 4 Mg/2 Ml Inj) 4 mg IV Q8H PRN PRN Reason: Nausea And Vomiting Promethazine HCl (Promethazine 25 Mg Tab) 25 mg PO Q6H PRN PRN Reason: Nausea And Vomiting Promethazine HCl (Promethazine 25 Mg Rect Supp) 25 mg MN Q6H PRN PRN Reason: Nausea And Vomiting - Vital Signs Vital signs: Vital Signs Temp Pulse Resp BP Pulse Ox 98 F 77 20 116/66 100 12/17/21 11:25 12/17/21 11:25 12/17/21 11:25 12/17/21 11:25 12/17/21 11:25 Temp Pulse Resp BP Pulse Ox 97.9 F 75 14 103/57 98 12/18/21 09:25 12/18/21 10:52 12/18/21 09:25 12/18/21 10:41 12/18/21 10:52 - Physical Exam Breasts: Positive: deferred Cardiovascular: Regular rate Lungs: Positive: Normal air movement Abdomen: Positive: soft Extremities: Positive: normal - Obstetrical FHR: category 1 Uterine Contraction Monitor Mode: External Results Result Diagrams: 12/17/21 11:55 Abnormal lab results 12/17/21 Range/Units 11:55 Hct 28.8 L (30.3-42.9) % MCV 77 L (79-97) fl MCH 27 L (28-32) pg MCHC 35 H (30-34) % RDW 16.4 H (13.2-15.2) % All other labs normal. Assessment and Plan Procedure risks reviewed including pain, bleeding, infection, injury to baby, damage to surrounding tissues and structures. Procedure and blood consents signed. Ancef 2 g abx prophylaxis Desires Nexplanon for PP contraception - Patient Problems (1) 39 weeks gestation of Current Visit: Yes Status: Acute (2) History of section Current Visit: Yes Status: Acute
[2021-12-18] MEDS ORDERED: ePHEDrine SULFATE 50 MG/1 ML INJ ONE (11:38)
[2021-12-18] MEDS ORDERED: ceFAZolin/STERILE WATER 2 GM/20 ML SYRINGE IV ONE (11:45)
[2021-12-18] MEDS ORDERED: WATER FOR IRRIG STERILE 1,500 ML BOTTLE IR ONE (11:50)
[2021-12-18] MEDS ORDERED: SODIUM CHLORIDE 0.9% IRR 1,500 ML BOTTLE IR ONE (11:50)
--- NOTE | 2021-12-18 11:52 | Anesthesia Day of Surgery ---
Anesthesia Day of Surgery - Day of Surgery Patient Examined: Yes Patient H&P Reviewed: Yes Patient is NPO: Yes Beta Blockers: No Cardiac Clearance: No Pulmonary Clearance: No Hao's Test: N/A
--- NOTE | 2021-12-18 11:53 | Anesthesia Consultation ---
Anesthesia Consult and Med Hx Date of service: 12/18/21 - Airway Anesthetic Teeth Evaluation: Good ROM Head & Neck: Adequate Mental/Hyoid Distance: Adequate Mallampati Class: Class III Intubation Access Assessment: Possibly Difficult - Pulmonary Exam CTA: Yes - Cardiac Exam Cardiac Exam: RRR - Pre-Operative Health Status ASA Pre-Surgery Classification: ASA2 Proposed Anesthetic Plan: Spinal Nerve Block: TAP - Pulmonary Hx Smoking: No Hx Asthma: No COPD: No Hx Pneumonia: No Hx Sleep Apnea: No - Cardiovascular System Hx Hypertension: Yes Hx Coronary Artery Disease: No Hx Heart Attack/AMI: No Hx Angina: No - Central Nervous System Hx Neuromuscular Disorder: No Hx Seizures: No CVA: No Hx Psychiatric Problems: No - Gastrointestinal Hx Gastroesophageal Reflux Disease: No - Endocrine Hx Renal Disease: No Hx End Stage Renal Disease: No Hx Cirrhosis: No Hx Liver Disease: No Hx Hypothyroidism: No Hx Hyperthyroidism: No - Hematic Hx Anemia: No Hx Sickle Cell Disease: No - Other Systems Hx Alcohol Use: No Hx Cancer: No Hx Obesity: Yes (Morbid obesity BMI 44.4) - Additional Comments Anesthesia Medical History Comments: previous c/s
--- NOTE | 2021-12-18 11:54 | Progress Note ---
Spinal Anesthesia Block - Spinal Anesthesia Block Start Time: 11:25 Stop Time: 11:30 Performed by:: BILL SALAZAR ([facility]) Procedure: Spinal anesthesia block is being performed for [c/s]. H&P, labs have been reviewed. Patient's questions and concerns have been answered. Informed consent has been performed. Timeout has was performed. Patient in sitting position on side of bed. Sterile prep and drape was performed. 3 mL 1% lidocaine skin wheal at L [3]-L [4]. Needle introducer advanced. 25-gauge spinal needle advanced, [+] CSF [-] blood. [Marcaine 10mg and Precedex 5mcg] Spinal dose was given. All needles removed. Patient tolerated procedure well.
[2021-12-18] MEDS ORDERED: PHENYLEPHRINE 10 MG/1 ML INJ SDV ONE (12:56)
[2021-12-18] MEDS ORDERED: SODIUM CHLORIDE 0.9% 100 ML ONE (12:56)
--- NOTE | 2021-12-18 13:02 | Operative Report ---
Operative Report Operative Report: Date of Procedure: 12/18/2021 Preoperative diagnosis: IUP @ 39w4d, h/o C/S x1 Postoperative diagnosis: same, s/p repeat low transverse section Procedure: repeat low transverse section Surgeon: Esthela Nina MD Anesthesia:Spinal Complications: none QBL:404 ml IV Fluids: 1050 ml UOP: 50 ml, clear urine at the end of procedure Indications: h/o C/S x1 Findings: 3290 g male infant in left occiput posterior position cephalic presentation with Apgars 9 & 9 Amniotic fluid clear Fallopian tubes normal in appearance Ovaries normal in appearance Procedure: The patient was taken to the operating room where epidural anesthesia was found to be adequate. 2 g Ancef was given prior to the procedure. She was then prepared and draped in the usual sterile fashion in the dorsal supine position with a leftward tilt. A Pfannenstiel skin incision was made with the scalpel and carried through to the underlying layer of fascia with the bovie. The fascia was incised in the midline and the incision extended laterally. The superior aspect of the fascial incision was then grasped with the Suzie's clamps, elevated, and the underlying rectus muscles dissected off bluntly and with sharp dissection using bovie. Attention was then turned to the inferior aspect of this incision which, in a similar fashion, was grasped, tented up with the Suzie clamps, and the rectus was dissected off bluntly and with sharp dissection. The rectus muscles were then in the midline, and the peritoneum identified and entered bluntly. The peritoneal incision was then extended superiorly and inferiorly with good visualization of the bladder. Filmy adhesions of the omentum to the uterus noted and taken down sharply. The bladder blade was then inserted and the lower uterine segment incised in a transverse fashion with the scalpel. The uterine incision was then extended laterally digitally. The bladder blade was then removed and the was delivered via LOP position. Nuchal cord reduced. The nose and mouth were suctioned with the bulb suction and the cord clamped and cut. The infant was handed off to the waiting pediatricians.The placenta was then removed; the uterus exteriorized and cleared of all clots and debris. The uterine incision was repaired with 0 vicryl in a running locked fashion to obtain excellent hemostasis. An imbrication layer was done. An area of bleediing was noted and a figure of eight suture was placed giving excellent hemostasis. Uterus returned to the abdomen. Surgicel powder was applied to the incision. The rectus muscle was reapproximated with 2-0 vicryl. The fascia was reapproximated with 0 vicryl in a running fashion. Subcutaneous l gay reapproximated with interrupted sutures of 2-0 vicryl. The skin was closed with 4-0 monocryl subcuticular stitch and the incision sealed with Steri- strips.The patient tolerated the procedure well. Sponge, lap, needle counts correct X 2. The patient was taken to the recovery room in a stable condition.
[2021-12-18] MEDS ORDERED: LANOLIN/ZINC/DIMETHICONE (LANSINOH) 7 GM TP PRN (16:54)
[2021-12-18] MEDS ORDERED: SIMETHICONE 80 MG CHEW TAB PO PRN (16:54)
[2021-12-18] MEDS ORDERED: WITCH HAZEL/ GLYCERIN PAD TP PRN (16:54)
[2021-12-18] MEDS ORDERED: oxyCODONE /ACETAMINOPHEN 5-325MG TAB PO PRN (16:54)
[2021-12-18] MEDS ORDERED: LACTATED RINGERS 1000 ML IV SOLN IV SCH (17:45)
[2021-12-18] MEDS: KETOROLAC 30 MG/1 ML INJ IV SCH (20:42)
[2021-12-19] MEDS: KETOROLAC 30 MG/1 ML INJ IV SCH (02:53)
[2021-12-19 06:16] LABS: Hematocrit 26.1 % (30.3-42.9); Hemoglobin 8.5 gm/dl (10.1-14.3)
--- NOTE | 2021-12-19 08:23 | Progress Note ---
Assessment and Plan A: 21yo s/p repeat C/S POD #1 Meeting postoperative goals with the exception of pain not well controlled Bottlefeeding, rooming in P: IV Morphine 2mg NOW Increase Percocet 2 tabs q6 hrs PRN Continue care, advance to full diet as tolerated this AM Encourage ambulation. Anticipate discharge home on 12/20. Subjective - Subjective Date of service: 12/19/21 Principal diagnosis: s/p rpt , POD #1 Patient reports: appetite normal, voiding normally, flatus, pain poorly controlled, ambulating normally [place]: doing well, bottle feeding Objective - Vital Signs Latest vital signs: Vital Signs Temp Pulse Resp BP BP Pulse Ox Pulse Ox 12/19/21 05:02 98.0 F 78 20 107/59 95 12/19/21 00:08 98.2 F 68 20 114/64 91 12/18/21 20:42 18 12/18/21 20:20 96 12/18/21 19:44 97.9 F 76 20 104/70 96 12/18/21 14:25 97.5 F L 65 18 134/82 99 98 12/18/21 14:05 97.5 F L 59 L 18 132/84 99 12/18/21 13:50 63 15 140/87 100 12/18/21 13:35 65 12 136/85 100 12/18/21 13:20 59 L 19 127/64 100 12/18/21 13:15 63 10 L 119/61 98 12/18/21 13:10 67 21 112/69 100 12/18/21 13:05 97.5 F L 73 12 106/66 99 12/18/21 11:12 73 98 12/18/21 11:11 77 102/62 12/18/21 11:07 70 99 12/18/21 11:02 75 98 12/18/21 10:57 76 97 12/18/21 10:56 78 102/58 12/18/21 10:52 75 98 12/18/21 10:47 81 97 12/18/21 10:42 75 97 12/18/21 10:41 77 103/57 12/18/21 10:37 89 97 12/18/21 10:32 87 98 12/18/21 10:27 97 H 99 12/18/21 10:26 98 H 112/71 12/18/21 10:22 78 97 12/18/21 10:17 80 98 12/18/21 10:12 88 97 12/18/21 10:11 89 115/62 12/18/21 10:07 93 H 99 12/18/21 10:04 81 113/56 12/18/21 10:02 87 99 12/18/21 09:57 78 110/60 98 12/18/21 09:52 87 98 12/18/21 09:47 78 99 12/18/21 09:42 69 98 12/18/21 09:41 68 100/57 12/18/21 09:37 87 99 12/18/21 09:32 86 99 12/18/21 09:27 75 98 12/18/21 09:25 97.9 F 89 14 105/61 99 12/18/21 09:23 88 105/61 12/18/21 09:22 96 H 96 Intake and Output 12/18/21 12/19/21 12/19/21 22:59 06:59 14:59 Intake Total 120 360 Output Total 1600 750 Balance -1480 -390 Intake: Oral 120 120 Intake, Free Water 240 Output: Urine 1600 750 Indwelling Catheter 1250 650 Uretheral (Day) 350 Void 0 100 Other: Total, Intake Amount 120 120 Total, Output Amount 350 100 # Voids Void 1 - Exam Narrative Exam: 21yo s/p repeat c/s POD #1. Denies chest pain, SOB, headaches, vision changes and NVD. VSS. Fundus firm, midline, @u/u, bleeding scant. Endorsing pain at incisional site and intermittent right sided pain that extends from right shoulder to incision site with deep breathing, rates this pain 5/10. Voiding and ambulating independently. Passing flatus. Tolerated PO liquids and snacks, awaiting breakfast. Dressing dry and intact. Cardiovascular: Present: Regular rate Lungs: Present: Normal air movement Abdomen: Present: soft, normal bowel sounds Vulva: both: normal Uterus: Present: firm, fundal height at umbilicus Extremities: Present: normal Deep Tendon Reflex Grade: Normal +2 Incision: Present: dry, intact, dressed - Labs Labs: Abnormal lab results 12/19/21 Range/Units 05:45 Hgb 8.5 L (10.1-14.3) gm/dl Hct 26.1 L (30.3-42.9) % - Allied health notes Allied health notes reviewed: nursing
[2021-12-19] MEDS ORDERED: MORPHINE 2 MG/1 ML INJ IV SCH (08:30)
[2021-12-19] MEDS: FERROUS SULFATE 325 MG TAB PO SCH (09:24)
[2021-12-19] MEDS: oxyCODONE /ACETAMINOPHEN 5-325MG TAB PO PRN ×2 (09:28→16:49)
--- NOTE | 2021-12-19 12:42 | Post Anesthesia Evaluation ---
- Post Anesthesia Evaluation Patient Participated: Yes Airway Patent: Yes Stable Respiratory Function: Yes Nausea/Vomiting: No Temp > 96.8F: Yes Pain Manageable: Yes Adequeate Hydration: Yes Anesthesia Complications: No Block Receding Appropriately: Yes Patient on Ventilator: No
[2021-12-19] MEDS ORDERED: TETANUS,DIPH,PERTUSS(ACELL) VACCINE 0.5 ML SYRINGE IM ONE (21:19)
[2021-12-19] MEDS: IBUPROFEN 800 MG TAB PO SCH (23:06)
[2021-12-20] MEDS: oxyCODONE /ACETAMINOPHEN 5-325MG TAB PO PRN (03:31)
--- NOTE | 2021-12-20 05:48 | Progress Note ---
Assessment and Plan A: 21 y.o. s/p rpt . POD #2. Still having some pain. P: Continue with care. Pain medication changed. Encourage ambulation. Advance diet as tolerated. Anticipate discharge home on 12/21. Subjective - Subjective Date of service: 12/20/21 Principal diagnosis: s/p rpt , POD #2 Interval history: Pt states that she is still having a lot of pain and is not ready for discharge home today. Changed pain medication from Percocet to [employer] [facility]. RN taking care of patient aware of this change. Patient reports: appetite normal, voiding normally, flatus, pain poorly controlled, ambulating normally : doing well Objective - Vital Signs Latest vital signs: Vital Signs Temp Pulse Resp BP BP Pulse Ox Pulse Ox 12/20/21 03:20 97 12/20/21 01:30 97 12/20/21 00:50 98.8 F 90 20 131/76 97 12/19/21 23:03 97 12/19/21 21:45 98 12/19/21 20:05 98 12/19/21 18:10 98.1 F 73 18 102/53 99 12/19/21 09:20 98.7 F 91 H 18 109/57 100 Intake and Output 12/19/21 12/19/21 12/20/21 14:59 22:59 06:59 Intake Total 240 360 Output Total 100 Balance -100 240 360 Intake: Oral 240 360 Output: Urine 100 Indwelling Catheter 100 Other: Total, Intake Amount 240 120 Total, Output Amount 100 # Voids Indwelling Catheter 1 1 1 Void 3 - Exam Breasts: Present: deferred Cardiovascular: Present: Regular rate Lungs: Present: Normal air movement Abdomen: Present: normal appearance, soft Vulva: both: normal Uterus: Present: normal, firm Extremities: Present: normal Incision: Present: normal, dry, intact, other (No s/sx of infec) - Labs Labs: Abnormal lab results 12/19/21 Range/Units 05:45 Hgb 8.5 L (10.1-14.3) gm/dl Hct 26.1 L (30.3-42.9) %
[2021-12-20] MEDS: HYDROcodone/ACETAMINOPHEN 5-325 MG TAB PO PRN ×2 (06:08→17:48)
[2021-12-20] MEDS: IBUPROFEN 800 MG TAB PO SCH ×3 (07:30→18:32)
[2021-12-20] MEDS: FERROUS SULFATE 325 MG TAB PO SCH (09:28)
[2021-12-20] MEDS: PRENATAL VIT27-FE FUMARATE-FOLIC ACID VIT TAB PO SCH (09:28)
[2021-12-20] MEDS ORDERED: FLU VACC QUAD 2021-22(6MOS UP)/PF 60 MCG/0.5 ML SYRINGE IM ONE (12:00)
[2021-12-21] MEDS: IBUPROFEN 800 MG TAB PO SCH (02:21)
[2021-12-21] MEDS: PRENATAL VIT27-FE FUMARATE-FOLIC ACID VIT TAB PO SCH ×2 (10:00→10:16)
[2021-12-21] MEDS: FERROUS SULFATE 325 MG TAB PO SCH (10:16)
[2021-12-21] MEDS: HYDROcodone/ACETAMINOPHEN 5-325 MG TAB PO PRN (10:17)
--- NOTE | 2021-12-21 13:26 | Discharge Summary ---
Providers - Providers Date of Admission: 12/18/21 08:59 Date of discharge: 12/21/21 (pt desires discharge home today) Attending physician: JAEL WHITAKER MD Primary care physician: [facility] Hospitalization Reason for admission: section, IUP at term Delivery: Procedure: section, repeat low transverse Episiotomy: none Laceration: none Incision: normal, dry, intact complications: none Discharge diagnosis: IUP at term delivered baby: male Condition at discharge: Good Disposition: 01 HOME / SELF CARE / HOMELESS - Discharge Diagnoses (1) delivery delivered Status: Acute Comment: Pt denies all complaints. Reports ambulating, voiding, and eating without difficulties. Reports desires for discharge today. Discharge precautions and scheduled follow up appointment reviewed. Pt verbalizes understanding. Plan - Discharge Medications Prescriptions: Docusate Sodium [Colace] 100 mg PO BID #60 capsule Lidocain2.5%/Prilocai2.5% [Emla] 1 applic TP ONCE #1 tube Ferrous Sulfate [Feosol 325 MG tab] 325 mg PO QDAY #30 tablet Ibuprofen [Motrin 800 MG tab] 800 mg PO Q8HR #30 tablet oxyCODONE /ACETAMINOPHEN [Percocet 5/325] 1 tab PO Q6HR PRN #20 tablet PRN Reason: Pain Vit-Fe Fumar-FA [ Vitamin] 1 tab PO QDAY #30 tablet - Provider Discharge Summary Activity: routine, no sex for 6 weeks, no heavy lifting 4 weeks, no strenuous exercise Diet: routine Instructions: routine Additional instructions: [] Smoking cessation referral if applicable(refer to patient education folder for contact #) [] Refer to [facility] Booklet Call your doctor immediately for: * Fever > 100.5 * Heavy vaginal bleeding ( >1 pad per hour) * Severe persistent headache * Shortness of breath * Reddened, hot, painful area to leg or breast * Drainage or odor from incision. * Keep incision clean and dry at all times and follow doctor's instructions regarding bathing/showering Congratulations! Please attend your scheduled postoperative appointment in 1 week. Thank you! - Follow up plan Follow up: PRIMARY CARE, [Primary Care Provider] - 7 Days Forms: [facility] Discharge Summary
[2021-12-21 14:46] VITALS: BP 120/67
== END 2021-12-21 15:56 | disposition home or self-care (01) | DRG 765 ==
LOC: APU 08:59 → EDSTATUS 11:30 → OB 14:29
PROVIDERS: ADMIT Student in an Organized Health Care Education/Training Program; ATTEND Student in an Organized Health Care Education/Training Program
PROC: 10D00Z1 Extraction of Products of Conception, Low, Open Approach (ICD-10-PCS; principal; 2021-12-18)
PROC: 3E0234Z Introduction of Serum, Toxoid and Vaccine into Muscle, Percutaneous Approach (ICD-10-PCS; 2021-12-19)
DX: O34.211 Maternal care for low transverse scar from previous cesarean delivery (principal); O10.92 Unspecified pre-existing hypertension complicating childbirth; Z20.822 Contact with and (suspected) exposure to COVID-19; Z37.0 Single live birth; Z3A.39 39 weeks gestation of pregnancy; Z91.048 Other nonmedicinal substance allergy status
CPT/HCPCS: 36415; 85014; 85018; 85027; 86592; 86850; 86900; 86901; 90471; 90686; 90715; G0378; J3490; J7121; J0690; J1100; J1885; J2370; J2405; J2765; J7120; U0003